=== PATIENT | male | born 1975 | race Caucasian/White ===

== ENCOUNTER 2016-04-28 00:57 | Emergency (ER) | payer SELFPAY ==
[2016-04-28 01:04] VITALS: TEMP 97.7; BMI 21.4
[2016-04-28] MEDS ORDERED: HYDROmorphone 1 MG INJECTION IV ONE ×2 (01:13→01:32)
[2016-04-28] MEDS ORDERED: NS 1,000 ML IV ONE (01:13)
[2016-04-28] MEDS ORDERED: ONDANSETRON HCL 4 MG/2 ML VIAL IV ONE (01:13)
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
[2016-04-28 01:29] LABS: AUTOMATED BASOPHIL 1.3 % (0-2); AUTOMATED EOSINOPHIL 1.9 % (0-5); AUTOMATED LYMPH 18.3 % (17-44); AUTOMATED MONOCYTE 8.5 % (3-10); MPV 7.1 fL (7.4-10.4)
[2016-04-28 01:40] LABS: BLOOD UREA NITROGEN 15 MG/DL (9-20); CALCIUM 9.2 MG/DL (8.4-10.2); CALCULATED OSMOLALITY 261 MOs/Kg (270-290); CHLORIDE 95 mEq/L (98-107); GLUCOSE 97 MG/DL (70-99); SODIUM LEVEL 135 mEq/L (137-146); TOTAL PROTEIN 8.1 G/DL (6.3-8.2)
--- NOTE | 2016-04-28 02:31 | DIRPT ---
CLINICAL DATA: Acute onset of right lower quadrant abdominal pain and right flank pain. Dark urinary output. Initial encounter. EXAM: CT ABDOMEN AND PELVIS WITHOUT CONTRAST TECHNIQUE: Multidetector CT imaging of the abdomen and pelvis was performed following the standard protocol without IV contrast. COMPARISON: CT of the abdomen and pelvis from 01/21/2015 FINDINGS: The visualized lung bases are clear. The liver and spleen are unremarkable in appearance. The gallbladder is within normal limits. The pancreas and adrenal glands are unremarkable. A 2 mm stone is noted at the upper pole of the left kidney. The kidneys are otherwise unremarkable. There is incomplete rotation of the right kidney. There is no evidence of hydronephrosis. No obstructing ureteral stones are seen. No perinephric stranding is appreciated. No free fluid is identified. The small bowel is unremarkable in appearance. The stomach is within normal limits. No acute vascular abnormalities are seen. The appendix is normal in caliber, without evidence of appendicitis. The colon is unremarkable in appearance. The bladder is mildly distended and grossly remarkable. The prostate is normal in size, with minimal calcification. No inguinal lymphadenopathy is seen. No acute osseous abnormalities are identified. IMPRESSION: 1. No acute abnormality seen within the abdomen or pelvis. 2. 2 mm nonobstructing stone at the upper pole of the left kidney. Electronically Signed By: Ezio Alonzo M.D. On: 04/28/2016 02:28
[2016-04-28 02:36] LABS: LEUKOCYTES/URINE NEG (NEGATIVE); NITRITE/URINE NEG (NEGATIVE); RBC/URINE 20-30 (0-2); URINE OCCULT BLOOD 3+ (NEG/TRACE); WBC/URINE 0-2 (0-2)
[2016-04-28] MEDS ORDERED: KETOROLAC TROMETH 30 MG/ML VIAL IV ONE (02:36)
[2016-04-28] MEDS ORDERED: KETOROLAC TROMETHAMINE 10 MG TAB PO ONE (02:48)
[2016-04-28 02:56] VITALS: BP 119/68; PULSE 89
== END 2016-04-28 03:04 | disposition home or self-care (01) ==
LOC: ED 00:57
DX: N23 Unspecified renal colic (principal); R10.9 Unspecified abdominal pain; R11.2 Nausea with vomiting, unspecified
CPT/HCPCS: 36415; 74176; 80053; 81001; 85025; 96361; 96374; 96375; 96376; 99284; J1170; J2405; J3490